=== PATIENT | female | born 1975 | race Caucasian/White ===

== ENCOUNTER 2017-07-01 11:23 | Emergency (ER) | payer OTHER, BC ==
[~2017-07-01] VITALS: Ht 172.7 cm; Wt 90.7 kg
[~2017-07-01 11:23] MED LIST: LISINOPRIL/HCTZ1 TA3 PO; MACROBID100 M1 PO; NAPROSYN500 MG PO; NORCO 5-325 TA1 EACH PO; TRAMADOL HCL50 MG PO; VITAMIN D-32000 UNI1 PO
[2017-07-01 11:29] VITALS: BP 132/84
[2017-07-01] MEDS ORDERED: CYCLOBENZAPRINE5 M3 PO (13:02)
[2017-07-01] MEDS ORDERED: Motrin,Rufen800 MG PO (13:03)
== END 2017-07-01 13:05 | disposition home or self-care (01) ==
LOC: ED 11:23
DX: M54.5 Low back pain (principal); I10 Essential (primary) hypertension; Z88.8 Allergy status to other drugs, medicaments and biological substances; Z88.0 Allergy status to penicillin; Z79.899 Other long term (current) drug therapy

== ENCOUNTER 2018-05-17 15:36 | Inpatient (IN) | payer OTHER ==
[~2018-05-17] VITALS: Ht 167.6 cm; Wt 94.9 kg
--- NOTE | ~2018-05-17 | EKG ---
[place], [place] ELECTROCARDIOGRAM REPORT NAME: FREDRICK MCCAIN UNIT #: [id number] ROOM: 522 DOCTOR: WILLIAM DRAFT REPORT BIRTHDATE: [birth year] [facility] Test Date: 2018-05-17 Test Time: 15:41:26 Pat Name: FREDRICK MCCAIN Department: Room: 522 Gender: F Butt Maker: Whitney Mart : 1975 Requested By: ANURAG TORRES Order Number: [id number] Reading MD: Kieran Aguilar MD Measurements Intervals [place] Rate: 106 P: 58 NM: 177 QRS: 82 QRSD: 113 T: -40 QT: 342 QTc: 455 Interpretive Statements Sinus tachycardia Borderline intraventricular conduction delay Nonspecific T abnormalities, inferior leads Baseline wander in lead(s) V2,V6 Electronically Signed On 05-20-2018 15:34:34 PST by Kieran Aguilar MD CM:EKGRPT:ELECTROCARDIOGRAM REPORT [id number] ANURAG THOMAS DRAFT REPORT ANURAG TORRES M.D.
--- NOTE | ~2018-05-17 | EKG ---
[place], [place] ELECTROCARDIOGRAM REPORT NAME: FREDRICK MCCAIN UNIT #: [id number] ROOM: 522 DOCTOR: WILLIAM DRAFT REPORT BIRTHDATE: [birth year] [facility] Test Date: 2018-05-17 Test Time: 18:12:35 Pat Name: FREDRICK MCCAIN Department: Room: 522 Gender: F Puff Iron Operator: Whitney Mart : 1975 Requested By: ANURAG TORRES Order Number: [id number] Reading MD: Kieran Aguilar MD Measurements Intervals [place] Rate: 97 P: 53 [place]: 156 QRS: 65 QRSD: 113 T: -27 QT: 356 QTc: 452 Interpretive Statements Sinus rhythm Borderline intraventricular conduction delay Borderline T abnormalities, diffuse leads Baseline wander in lead(s) II,III,aVR,aVF,V1,V4,V6 No change from earlier ECG this date Electronically Signed On 05-20-2018 15:38:09 PST by Kieran Aguilar MD CM:EKGRPT:ELECTROCARDIOGRAM REPORT 1538 ANURAG THOMAS DRAFT REPORT ANURAG TORRES M.D.
--- NOTE | ~2018-05-17 | EKG ---
[place], [place] ELECTROCARDIOGRAM REPORT NAME: FREDRICK MCCAIN UNIT #: [id number] ROOM: 522 DOCTOR: WILLIAM DRAFT REPORT BIRTHDATE: [birth year] [facility] Test Date: 2018-05-17 Test Time: 21:33:42 Pat Name: FREDRICK MCCAIN Department: Room: 522 Gender: F Pneumatic Tester Mechanic: Silvia Pollard : 1975 Requested By: ANURAG TORRES Order Number: [id number] Reading MD: Kieran Aguilar MD Measurements Intervals [place] Rate: 109 P: 59 [place]: 185 QRS: 76 QRSD: 123 T: -35 QT: 344 QTc: 464 Interpretive Statements Sinus tachycardia Nonspecific intraventricular conduction delay Nonspecific T abnormalities, inferior leads No change from earlier ECG this date Electronically Signed On 05-20-2018 15:40:23 PST by Kieran Aguilar MD CM:EKGRPT:ELECTROCARDIOGRAM REPORT 1540 ANURAG THOMAS DRAFT REPORT ANURAG TORRES M.D.
[~2018-05-17 15:36] MED LIST changes: +CYCLOBENZAPRINE5 M3 PO; +LISINOPRIL-HCT1 EACH PO; -LISINOPRIL/HCTZ1 TA3 PO; +Motrin,Rufen800 MG PO
[2018-05-17 15:41] VITALS: BP 107/42
[2018-05-17 16:11] LABS: BASO # 0.1 10*3/uL (0.0-0.1); BASO % 0.4 % (0.0-1.0); EOS # 0.1 10*3/uL (0.0-0.4); EOS % 0.5 % (1.0-4.0); HEMATOCRIT 38.8 % (37.0-47.0); HEMOGLOBIN 13.4 g/dl (12.0-16.0); LYMPH # 1.7 10*3/uL (1.3-4.4); LYMPH % 8.7 % (27.0-41.0); MEAN CELL VOLUME 88.2 fl (81.0-99.0); MEAN CORPUSCULAR HGB 30.5 pg (27.0-31.0); MEAN CORPUSCULAR HGB CONC 34.5 g/dl (33.0-37.0); MEAN PLATELET VOLUME 9.5 fl (9.6-12.3); MONO # 1.1 10*3/uL (0.1-1.0); MONO % 5.5 % (3.0-9.0); NEUT # 16.4 10*3/uL (2.3-7.9); NEUT % 84.4 % (47.0-73.0); PLATELET COUNT AUTOMATED 370 10*3/uL (130-400); RED CELL DISTRI WIDTH 13.2 % (0-14.5); WHITE BLOOD COUNT 19.4 10*3/uL (4.8-10.8)
[2018-05-17 16:20] LABS: ACT PARTIAL THROMBO TIME 23.2 SECONDS (20.8-31.5)
[2018-05-17 16:22] VITALS: BP 125/75
[2018-05-17 16:31] LABS: ALBUMIN 4.2 gm/dl (3.1-4.5); ALKALINE PHOSPHATASE 64 U/L (45-117); BUN 14 mg/dl (7-24); CHLORIDE 100 mmol/L (98-107); CREATININE 0.69 mg/dL (0.55-1.02); POTASSIUM 3.5 mmol/L (3.5-5.1); SGOT/AST 15 IU/L (3-35); SGPT/ALT 27 U/L (12-78); SODIUM 135 mmol/L (136-145); TOTAL PROTEIN 8.3 gm/dL (6.4-8.2)
[2018-05-17 16:33] LABS: TROPONIN I < 0.015 ng/ml (<0.045)
[2018-05-17 17:25] VITALS: BP 116/60
[2018-05-17 18:09] LABS: BILIRUBIN NEGATIVE (NEGATIVE); BLOOD 1+ (NEGATIVE); CLARITY CLEAR (CLEAR); COLOR YELLOW (YELLOW); GLUCOSE NEGATIVE (NEGATIVE); KETONE NEGATIVE (NEGATIVE); LEUKO ESTERASE NEGATIVE (NEGATIVE); NITRITE NEGATIVE (NEGATIVE); SPECIFIC GRAVITY <= 1.005 (1.005-1.030); UROBILINOGEN 0.2 E.U./dl (0.2-1.0)
[2018-05-17 18:26] LABS: BACTERIA 1+; WBC 0-2 wbc/hpf (0-5)
[2018-05-17 20:30] VITALS: BP 122/66
[2018-05-17 20:35] VITALS: BP 116/59
--- NOTE | 2018-05-17 20:35 | NUR ---
A 43, admitted to 5E, under the services of SHELDON Herrera DO with a diagnosis of CHEST PAIN. Chief complaint is CHEST PAIN. Patient arrived via wheel chair from ER. Monitor applied. Initial assessment completed. Vital signs taken and recorded. SHELDON HERRERA DO notified of admission to the unit. Orders received. See assessment for past medical history, medications and allergies. Patient and/or family oriented to unit. [facility] 5TH FLOOR visitation policy reviewed. Clothing/patient valuable form completed. ENEDINA CROW
[2018-05-17] MEDS ORDERED: SINGULAIR10 M1 PO (21:25)
[2018-05-17] MEDS ORDERED: EFFEXOR XR150 M1 PO (21:26)
--- NOTE | 2018-05-17 21:45 | NUR ---
MED REC UP TO DATE. DR STILES NOTIFIED.
--- NOTE | 2018-05-17 22:05 | NUR ---
PATIENT C/O HEADACHE GIVEN PRN TYLENOL. RATES 08/07. WILL CONTINUE TO MONTIOR
[2018-05-18] VITALS: BP 104/58
[2018-05-18 06:11] LABS: BASO # 0.1 10*3/uL (0.0-0.1); BASO % 0.3 % (0.0-1.0); EOS # 0.2 10*3/uL (0.0-0.4); EOS % 1.5 % (1.0-4.0); HEMATOCRIT 36.3 % (37.0-47.0); HEMOGLOBIN 11.9 g/dl (12.0-16.0); LYMPH # 1.9 10*3/uL (1.3-4.4); LYMPH % 12.3 % (27.0-41.0); MEAN CELL VOLUME 89.6 fl (81.0-99.0); MEAN CORPUSCULAR HGB 29.4 pg (27.0-31.0); MEAN CORPUSCULAR HGB CONC 32.8 g/dl (33.0-37.0); MEAN PLATELET VOLUME 9.6 fl (9.6-12.3); MONO # 0.8 10*3/uL (0.1-1.0); NEUT # 12.6 10*3/uL (2.3-7.9); NEUT % 80.4 % (47.0-73.0); PLATELET COUNT AUTOMATED 328 10*3/uL (130-400); RED BLOOD COUNT 4.05 10*6/uL (4.10-5.10); RED CELL DISTRI WIDTH 13.2 % (0-14.5); WHITE BLOOD COUNT 15.7 10*3/uL (4.8-10.8)
[2018-05-18 06:43] LABS: ALBUMIN 3.2 gm/dl (3.1-4.5); BUN 9 mg/dl (7-24); CHLORIDE 102 mmol/L (98-107); CHOLESTEROL 158 mg/dL (<200); CREATININE 0.48 mg/dL (0.55-1.02); HDL CHOLESTEROL 54 mg/dl (40-60); LDL CHOLESTEROL 94 mg/dL (9-159); PHOSPHOROUS 2.6 mg/dL (2.5-4.9); POTASSIUM 3.3 mmol/L (3.5-5.1); SGOT/AST 8 IU/L (3-35); SGPT/ALT 21 U/L (12-78); SODIUM 137 mmol/L (136-145); TOTAL PROTEIN 7.2 gm/dL (6.4-8.2); TRIGLYCERIDES 51 mg/dl (<150); VLDL CHOLESTEROL 10 mg/dL (6-40)
[2018-05-18 06:50] LABS: ALKALINE PHOSPHATASE 60 U/L (45-117); FREE T4 1.01 ng/dl (0.76-1.46); THYROID STIM HORMONE (HS) 0.829 uIU/ml (0.358-4.75)
--- NOTE | 2018-05-18 07:35 | NUR ---
PATIENT INSTRUCTED ON FLUTTER Q2, GOOD EFFORT. LUNGS CLEAR, PULSE OX 99% ON ROOM AIR.
[2018-05-18 12:00] VITALS: BP 119/66
[2018-05-18] MEDS ORDERED: LEVAQUIN500 M2 PO (13:49)
[2018-05-18] MEDS ORDERED: PREDNISONE10 MG PO (13:49)
--- NOTE | 2018-05-18 14:02 | NUR ---
Discharge instructions reviewed with patient/family. Patient receptive and verbalizes understanding. Follow-up care arranged. Written instructions given to patient/family. MEAGAN TOTH
== END 2018-05-18 14:02 | disposition home or self-care (01) | DRG 872 ==
LOC: ED 15:36 → EDHOLD 19:13 → 5E 19:47
PROVIDERS: Emergency Medicine; Family Medicine; Nurse Practitioner Family; ADMIT Internal Medicine
DX: A41.9 Sepsis, unspecified organism (principal); F41.9 Anxiety disorder, unspecified; R07.9 Chest pain, unspecified; E83.41 Hypermagnesemia; M54.5 Low back pain; I10 Essential (primary) hypertension; Z88.0 Allergy status to penicillin; Z88.8 Allergy status to other drugs, medicaments and biological substances; Z79.899 Other long term (current) drug therapy; Z98.891 History of uterine scar from previous surgery; Z98.51 Tubal ligation status; Z90.49 Acquired absence of other specified parts of digestive tract; Z90.710 Acquired absence of both cervix and uterus

== ENCOUNTER → 2018-05-29 | Outpatient (CLI) | payer OTHER ==
[~2018-05-29] MED LIST changes: +EFFEXOR XR150 M1 PO; +LEVAQUIN500 M2 PO; +PREDNISONE10 MG PO; +SINGULAIR10 M1 PO
== END | disposition home or self-care (01) ==
LOC: CARD 07:15
DX: I10 Essential (primary) hypertension (principal); M79.89 Other specified soft tissue disorders; I49.8 Other specified cardiac arrhythmias